=== PATIENT | male | born 1970 | race African-American/Black ===

== ENCOUNTER 2022-08-26 17:27 | Emergency (ER) | payer BC ==
[~2022-08-26] VITALS: Ht 180.3 cm; Wt 108.9 kg
--- NOTE | 2022-08-26 17:55 | NUR ---
BIBFAMILY c/o abd pain since wednesday, no nausea vomiting or diarrhea 02/04 ps. AMBULATORY, PLACED IN BED, AAOX4, IN PAIN.
[2022-08-26] MEDS ORDERED: MAG HYDROX/AL HYDROX/SIMETH 30 ML UDC PO ONE (18:00)
[2022-08-26] MEDS ORDERED: ONDANSETRON HCL/PF 4 MG/2 ML VIAL IV ONE (18:00)
[2022-08-26] MEDS ORDERED: LIDOCAINE VISCOUS 2% UD 15 ML UDC MM ONE (18:00)
--- NOTE | 2022-08-26 18:00 | NUR ---
RUG WEAVER AT BEDSIDE
[2022-08-26] MEDS ORDERED: MAG HYDROX/AL HYDROX/SIMETH 30 ML UDC ONE (18:19)
[2022-08-26] MEDS ORDERED: LIDOCAINE VISCOUS 2% UD 15 ML UDC ONE (18:19)
[2022-08-26] MEDS ORDERED: ONDANSETRON HCL/PF 4 MG/2 ML VIAL ONE (18:19)
[2022-08-26 18:22] LABS: BASOPHILS % (AUTO) 0.1 % (0.0-2.0); EOSINOPHILS % (AUTO) 0.4 % (0.0-6.0); HEMATOCRIT 47 % (39-51); HEMOGLOBIN 15.7 g/dL (13.5-17.5); LYMPHOCYTES # (AUTO) 1.2 K/uL (0.8-4.8); MEAN CORPUSCULAR HGB CONC 34 g/dl (31.0-36.0); MEAN CORPUSCULAR VOLUME 89 fL (80-96); MONOCYTES # (AUTO) 0.5 K/uL (0.1-1.30); MONOCYTES % (AUTO) 4.9 % (2.0-12.0); NEUTROPHILS # (AUTO) 7.8 K/uL (1.8-8.9); NEUTROPHILS % (AUTO) 81.6 % (43.0-81.0); PLATELET COUNT (AUTO) 281 K/uL (150-450); RED BLOOD CELL COUNT(AUTO) 5.28 MIL/uL (4.5-6.0); WHITE BLOOD COUNT (AUTO) 9.5 K/uL (4.3-11.0)
--- NOTE | 2022-08-26 18:25 | NUR ---
PATIENT TAKEN TO CT VIA [facility]
[2022-08-26 18:58] LABS: ALBUMIN 3.8 g/dL (3.4-5.0); BILIRUBIN,DIRECT 0.2 mg/dL (0.0-0.2); BILIRUBIN,TOTAL 0.7 mg/dL (0.2-1.0); CALCIUM, SERUM 9.2 mg/dL (8.5-10.1); CREATININE 1.3 mg/dL (0.6-1.3); POTASSIUM 4.1 mmol/L (3.5-5.1); TOTAL PROTEIN, SERUM 8.6 g/dL (6.4-8.2)
--- NOTE | 2022-08-26 19:21 | NUR ---
SWAB FOR COVID19 SENT TO LAB
--- NOTE | 2022-08-26 19:23 | NUR ---
U/S TECH AT BEDSIDE
[2022-08-26] MEDS ORDERED: KETOROLAC TROMETHAMINE INJ 30 MG/ML VIAL IV ONE (19:30)
[2022-08-26] MEDS ORDERED: IV NS 0.9% 1,000 ML IV ONE (19:30)
[2022-08-26] MEDS ORDERED: KETOROLAC TROMETHAMINE INJ 30 MG/ML VIAL ONE (19:36)
[2022-08-26] MEDS ORDERED: HYDR-4303 PO (20:59)
[2022-08-26] MEDS ORDERED: IBUP-1957 PO (20:59)
--- NOTE | 2022-08-26 21:15 | NUR ---
IV removed. Catheter intact and site benign. Pressure and 4x4 applied to site. No bleeding noted.Patient discharged to home in stable condition. Written and verbal after care instructions given. Patient verbalizes understanding of instruction.
[2022-08-26 21:31] VITALS: BP 141/89
== END 2022-08-26 21:15 | disposition home or self-care (01) ==
LOC: ER 17:34
DX: K85.90 Acute pancreatitis without necrosis or infection, unspecified (principal); I10 Essential (primary) hypertension; Z79.899 Other long term (current) drug therapy; Z20.822 Contact with and (suspected) exposure to COVID-19
CPT/HCPCS: 99285; 74176; 96374; 76705; 96361; 96375; 87426; 85025; 80048; 83690; 80076; 36415; J1885; J2405; C9803